=== PATIENT | female | born 1995 | race Caucasian/White ===

== ENCOUNTER → 2017-10-26 | Outpatient (CLI) | payer BC | LOC: COL.RAD 10:11 | DX: R10.32 Left lower quadrant pain (principal) ==

== ENCOUNTER 2019-09-25 16:05 | Emergency (ER) | payer MEDICAID ==
[~2019-09-25] VITALS: Ht 167.6 cm; Wt 61.4 kg
[2019-09-25 16:17] VITALS: TEMP 98.7
[2019-09-25 17:30] LABS: COLLECTION METHOD CLEAN CATCH
[2019-09-25] MEDS ORDERED: VENLAFAXINE225 MG PO (17:31)
[2019-09-25 17:36] LABS: MUCOUS Present /lpf; PH 6 (5-8); SQUAMOUS EPITHELIAL 0-2 /hpf; URINE APPEARANCE Clear; URINE BACTERIA Rare /hpf; URINE BILIRUBIN Negative (NEGATIVE); URINE BLOOD Negative (NEGATIVE); URINE COLOR Straw; URINE GLUCOSE Negative (NEGATIVE); URINE KETONE Negative (NEGATIVE); URINE LEUKOCYTE ESTERASE Negative (NEGATIVE); URINE NITRATE Negative (NEGATIVE); URINE PROTEIN(semi-quant) Negative (NEGATIVE); URINE RBC 0-2 /hpf; URINE UROBILINOGEN Negative (NEGATIVE)
[2019-09-25 18:13] LABS: BASO # 0.1 (0.0-0.2); BASO % 0.6 % (0.0-2.0); EOS # 0.2 (0.0-0.7); EOS % 1.8 % (0-4.0); GRAN # 7.1 (1.4-6.5); GRAN % 66.8 % (42.2-75.2); HEMOGLOBIN 12.7 g/dl (12.5-16.0); LYMPH # 2.4 (1.2-3.4); LYMPH % 22.1 % (20.0-51.0); MEAN CELL VOLUME 91 fl (80.0-100.0); MEAN CORPUSCULAR HEMOGLOBIN 31 pg (27.0-31.0); MEAN CORPUSCULAR HGB CONC 35 g/dl (33.0-37.0); MONO # 0.9 (0.1-0.6); MONO % 8.4 % (1.7-9.3); PLATELET COUNT 319 K/mm3 (130-400); RED BLOOD COUNT 4.04 M/mm3 (4.10-5.30); REDCELL DISTRIBUTION WIDTH-CV 10.9 % (11.5-14.5)
[2019-09-25 18:21] LABS: HEMATOCRIT 36.8 % (37.0-47.0)
[2019-09-25 21:05] VITALS: BP 126/71; PULSE 77
== END 2019-09-25 21:05 | disposition home or self-care (01) ==
LOC: COL.ER 16:05
PROVIDERS: Emergency Medicine
DX: O20.0 Threatened abortion (principal); Z3A.01 Less than 8 weeks gestation of pregnancy
CPT/HCPCS: J2791

== ENCOUNTER 2019-12-05 19:05 | Emergency (ER) | payer MEDICAID ==
[~2019-12-05] VITALS: Ht 167.6 cm; Wt 66.8 kg
[2019-12-05 19:11] VITALS: TEMP 98.1
[2019-12-05 19:37] LABS: COLLECTION METHOD CLEAN CATCH
[2019-12-05 19:41] LABS: BASO # 0.1 (0.0-0.2); BASO % 0.5 % (0.0-2.0); EOS # 0.2 (0.0-0.7); EOS % 2.1 % (0-4.0); GRAN # 6.8 (1.4-6.5); GRAN % 64.5 % (42.2-75.2); HEMOGLOBIN 10.3 g/dl (12.5-16.0); LYMPH # 2.7 (1.2-3.4); LYMPH % 25.6 % (20.0-51.0); MEAN CELL VOLUME 88 fl (80.0-100.0); MEAN CORPUSCULAR HEMOGLOBIN 31 pg (27.0-31.0); MEAN CORPUSCULAR HGB CONC 35 g/dl (33.0-37.0); MEAN PLATELET VOLUME 10.1 fl (7.4-10.4); MONO # 0.7 (0.1-0.6); MONO % 6.9 % (1.7-9.3); PLATELET COUNT 259 K/mm3 (130-400); RED BLOOD COUNT 3.31 M/mm3 (4.10-5.30); REDCELL DISTRIBUTION WIDTH-CV 11.6 % (11.5-14.5)
[2019-12-05 19:43] LABS: HEMATOCRIT 29.1 % (37.0-47.0)
[2019-12-05 19:44] LABS: MUCOUS Present /lpf; PH 7 (5-8); URINE APPEARANCE Clear; URINE BACTERIA Rare /hpf; URINE BILIRUBIN Negative (NEGATIVE); URINE BLOOD Negative (NEGATIVE); URINE COLOR Straw; URINE GLUCOSE Negative (NEGATIVE); URINE KETONE Negative (NEGATIVE); URINE LEUKOCYTE ESTERASE Negative (NEGATIVE); URINE NITRATE Negative (NEGATIVE); URINE PROTEIN(semi-quant) Negative (NEGATIVE); URINE RBC None Seen /hpf; URINE UROBILINOGEN Negative (NEGATIVE)
[2019-12-05 20:10] LABS: ALBUMIN 3.6 gm/dL (3.5-5.0); BILIRUBIN,TOTAL 0.1 mg/dL (0.0-1.0); CALCIUM 8.8 mg/dL (8.4-10.2); CREATININE, serum 0.37 (0.52-1.25); POTASSIUM 3.6 mmol/L (3.4-5.0); TOTAL PROTEIN 6.6 gm/dL (6.4-8.2)
[2019-12-05 20:45] VITALS: BP 120/78; PULSE 77
== END 2019-12-05 20:45 | disposition home or self-care (01) ==
LOC: COL.ER 19:05
PROVIDERS: Physician Assistant
DX: O26.892 Other specified pregnancy related conditions, second trimester (principal); R10.9 Unspecified abdominal pain; Z87.59 Personal history of other complications of pregnancy, childbirth and the puerperium; Z3A.16 16 weeks gestation of pregnancy

== ENCOUNTER → 2019-12-05 | Outpatient (CLI) | payer MEDICAID ==
[~2019-12-05] MED LIST: VENLAFAXINE225 MG PO
[2019-12-05 18:45] VITALS: BP 114/66; PULSE 84; TEMP 98.3
--- NOTE | 2019-12-05 19:09 | NUR ---
1830 HERE FOR LOWER ABD PAIN. PT WAS SENT HERE FROM ER FOR EVAL - IS 16.3WKS WITH LOWER ABD PAIN. COVID SCREEN DONE. FHR EVAL AND VS. REPORT TO DR SANCHES. 1899 SULY=W TO RETURN TO ER FOR FURTHER EVAL OF ABD PAIN.
== END ==
LOC: LDRO 18:40
DX: Z11.59 Encounter for screening for other viral diseases (principal); O26.892 Other specified pregnancy related conditions, second trimester; R10.30 Lower abdominal pain, unspecified; Z3A.16 16 weeks gestation of pregnancy

== ENCOUNTER 2020-03-25 15:28 | Outpatient (CLI) | payer MEDICAID ==
[~2020-03-25] VITALS: Ht 170.2 cm; Wt 77.7 kg
--- NOTE | 2020-03-25 15:30 | NUR ---
Pt arrives on unit ambulatory. Referred from office for non-reactive NST. EFM and toco applied. VSS. Denies vaginal bleeding, LOF, regular ctx and reports GFM. Admisison assessment completed. Updated on POC. No questions or concerns. Call light within reach.
[2020-03-25] MEDS ORDERED: MELATONIN5 M1 SL (15:41)
[2020-03-25] MEDS ORDERED: PRENATAL TABLET PO (15:42)
[2020-03-25] MEDS ORDERED: NATURAL IRON65 MG (15:42)
[2020-03-25] MEDS ORDERED: OSCAL 500 TAB500 MG PO (15:42)
[2020-03-25 16:20] VITALS: BP 118/64; PULSE 83; TEMP 98.3
== END 2020-03-25 16:20 | disposition home or self-care (01) ==
LOC: LDRO 15:28
DX: O34.30 Maternal care for cervical incompetence, unspecified trimester (principal); Z3A.00 Weeks of gestation of pregnancy not specified

== ENCOUNTER 2020-03-27 10:50 | Outpatient (CLI) | payer MEDICAID ==
[~2020-03-27] VITALS: Ht 170.2 cm; Wt 77.3 kg
--- NOTE | 2020-03-27 10:35 | NUR ---
1035- Pt presents to unit via wheelchair, bent over in pain. G2L0, 32+3. Complains of constant severe, 10/10 pain in right lower quadrant. Denies cramping or contractions. +FM. 1036- Pt assisted into gown and into bed, EFM and TOCO on anj tracing intermittently. VSS. O2 sat monitor on and tracing.
[~2020-03-27 10:50] MED LIST changes: +MELATONIN5 M1 SL; +NATURAL IRON65 MG; +OSCAL 500 TAB500 MG PO; +PRENATAL TABLET PO
[2020-03-27 10:58] VITALS: BP 112/66; PULSE 75; TEMP 98.5
--- NOTE | 2020-03-27 11:15 | NUR ---
1115- Pt updated on MD orders, Pt denies needed to void requests water to drink. Pt states pain is much better, 10/22. Water given.
[2020-03-27 11:30] VITALS: PULSE 83
[2020-03-27 11:40] LABS: MEAN CELL VOLUME 90 fl (80.0-100.0); MEAN CORPUSCULAR HEMOGLOBIN 32 pg (27.0-31.0); MEAN CORPUSCULAR HGB CONC 35 g/dl (33.0-37.0); MEAN PLATELET VOLUME 10.4 fl (7.4-10.4); PLATELET COUNT 207 K/mm3 (130-400); RED BLOOD COUNT 3.46 M/mm3 (4.10-5.30); REDCELL DISTRIBUTION WIDTH-CV 11.8 % (11.5-14.5)
[2020-03-27 11:47] LABS: ALBUMIN 3.3 gm/dL (3.5-5.0); BILIRUBIN,TOTAL 0.4 mg/dL (0.0-1.0); CALCIUM 8.6 mg/dL (8.4-10.2); CREATININE, serum 0.38 (0.52-1.25); HEMATOCRIT 31.1 % (37.0-47.0); POTASSIUM 3.8 mmol/L (3.4-5.0); TOTAL PROTEIN 6.3 gm/dL (6.4-8.2)
[2020-03-27 12:00] VITALS: BP 102/58; PULSE 73
[2020-03-27 12:02] LABS: COLLECTION METHOD CLEAN CATCH
[2020-03-27 12:04] LABS: BAND 15 % (0-10); EOSINOPHIL 1 % (0-4); LYMPHOCYTE 27 % (20.0-51.0); METAMYELOCYTE 2 % (0-0); NEUTROPHILS 53 % (42.0-75.2); PLATELET ESTIMATE NORMAL (NORMAL)
[2020-03-27 12:19] LABS: MUCOUS Present /lpf; PH 7 (5-8); SQUAMOUS EPITHELIAL 0-2 /hpf; URINE APPEARANCE Cloudy; URINE BACTERIA None Seen /hpf; URINE BILIRUBIN Negative (NEGATIVE); URINE BLOOD Negative (NEGATIVE); URINE COLOR Yellow; URINE GLUCOSE Negative (NEGATIVE); URINE KETONE Negative (NEGATIVE); URINE LEUKOCYTE ESTERASE Negative (NEGATIVE); URINE NITRATE Negative (NEGATIVE); URINE PROTEIN(semi-quant) Negative (NEGATIVE); URINE RBC 0-2 /hpf; URINE UROBILINOGEN Negative (NEGATIVE)
[2020-03-27 12:41] VITALS: BP 96/55; PULSE 81
--- NOTE | 2020-03-27 12:41 | NUR ---
1241- EFM and TOCO off. Discharge plan explained, questions answered. Pt up to change into street clothes. 1255- Discharge paperwork given and explained. Pt denies questions. Pt ambulates off unit with spouse in stable condition.
== END 2020-03-27 12:55 | disposition home or self-care (01) ==
LOC: LDRO 10:50
PROVIDERS: Obstetrics & Gynecology
DX: O26.899 Other specified pregnancy related conditions, unspecified trimester (principal); Z3A.00 Weeks of gestation of pregnancy not specified

== ENCOUNTER 2020-05-17 20:57 | Outpatient (CLI) | payer MEDICAID ==
[~2020-05-17] VITALS: Ht 167.6 cm; Wt 85.0 kg
[2020-05-17 21:18] VITALS: BP 119/74; PULSE 88; TEMP 98.4
[2020-05-17 21:20] VITALS: BP 119/74; PULSE 88; TEMP 98.4
--- NOTE | 2020-05-17 21:20 | NUR ---
2119 G2L0 39.5 WEEK GEST TO LR6 WITH C/O CONTRACTIONS MOST OF THE DAY, BECOMING REGULAR AND MORE PAINFUL AT AROUND 1600. STATES HAS NOT BEEN LEAKING ANY FLUID. HAD MEMBRANES STRIPPED BY DR WYNN IN THE OFFICE A COUPLE OF DAYS AGO. EFM ON. SVE /-2. BABY VERY ACTIVE, CONSTANTLY MOVING WITH ACCELS TO THE 160-170 NOTED. ADM ASSESSMENT DONE.
--- NOTE | 2020-05-17 21:40 | NUR ---
2140 PT STATES SHE IS BLEEDING. FELT SOMETHING COMING OUT AND FELT DOWN THERE AND HAD BLOOD ON HER HAND. SVE WITH NO CERVICAL CHANGE AND NO FLUID NOTED BUT 4 CM SPOT OF LIGHT BLOOD ON PAD AND 0.5 CM CLOT. SVE WITH NO FLUID NOTED.
[2020-05-17 22:15] VITALS: BP 129/82; PULSE 78
--- NOTE | 2020-05-17 22:15 | NUR ---
2215 SVE WITH NO CERVICAL CHANGE. SM AMT OF OLD, BROWNISH BLOOD NOTED ON GLOVE WITH EXAM. NO FLUID NOTED. BABY IS CONSTATNLY MOVING. DR. GARDNER NOTIFIED. WILL BE IN TO VISIT AND REVIEW STRIP.
--- NOTE | 2020-05-17 23:20 | NUR ---
2320 BABY HAS NOT BEEN SO ACTIVE SINCE 2299. FHT BASE 130'S. SHIRLENE EVERY 6-7 MINUTES WITH BACK PAIN BUT FEELS LIKE SHE COULD GO HOME FOR AWHILE. SVE WITH NO CHANGE. BROWNISH MUCOUS ON GLOVE AFTER SVE. DR GARDNER HERE AND REPORT GIVEN AND STRIP REVIEWED. ORDER TO DISMISS TO HOME 2339 DISMISSED TO HOME WITH INSTRUCTIONS.
== END 2020-05-17 23:40 | disposition home or self-care (01) ==
LOC: LDRO 20:57 → LDR 21:08 → LDRO 23:40
DX: O62.9 Abnormality of forces of labor, unspecified (principal); Z3A.39 39 weeks gestation of pregnancy
CPT/HCPCS: OP

== ENCOUNTER 2020-05-18 05:15 | Inpatient (IN) | payer MEDICAID ==
[2020-05-18] VITALS (49 sets, daily range): BP systolic 101–148; BP diastolic 57–961; PULSE 71–134; TEMP 97.8–99
[~2020-05-18] VITALS: Ht 167.6 cm; Wt 85.0 kg
--- NOTE | 2020-05-18 05:15 | NUR ---
0515 G2L0 39.6 WEEK GEST TO LR5 IN ACTIVE [facility] 0530 EFM ON. SVE /-2. BOW INTACT. OLD BLOODY SHOW NOTED ON EXAM. ADM ASSESSMENT COMPLETED.
--- NOTE | 2020-05-18 05:50 | NUR ---
0550 DR GARDNER NOTIFIED AND ADM ORDER RECEIVED. 0600 IV FLUIDS STARTED AND CASE LINER NOTIFIED FOR EPIDURAL PLACEMENT. 0630 SITTING ON SIDE OF BED FOR EPIDURAL. SEE ANESTHSIA RECORD FOR MORE INFO
--- NOTE | 2020-05-18 06:45 | NUR ---
0645 SITTING UP FOR EPID. UNABLE TO RESEARCH AND DEVELOPMENT TECHNICIAN FHT'S WHILE SITTING UP.
[2020-05-18 07:07] LABS: BASO % 0.2 % (0.0-2.0); EOS # 0.1 (0.0-0.7); EOS % 0.7 % (0-4.0); GRAN # 12.9 (1.4-6.5); HEMOGLOBIN 11.9 g/dl (12.5-16.0); LYMPH # 2.3 (1.2-3.4); LYMPH % 13.6 % (20.0-51.0); MEAN CELL VOLUME 91 fl (80.0-100.0); MEAN CORPUSCULAR HEMOGLOBIN 32 pg (27.0-31.0); MEAN CORPUSCULAR HGB CONC 35 g/dl (33.0-37.0); MONO # 1.3 (0.1-0.6); MONO % 7.8 % (1.7-9.3); PLATELET COUNT 218 K/mm3 (130-400); REDCELL DISTRIBUTION WIDTH-CV 11.7 % (11.5-14.5)
[2020-05-18 07:08] LABS: HEMATOCRIT 33.7 % (37.0-47.0)
--- NOTE | 2020-05-18 08:00 | NUR ---
PT REPORTS SHE IS FEELING NAUSEATED ALL OF A SUDDEN. SVE 5-6/90/-2. BP WNL. WILL GIVE ZOFRAN. FHT'S WITH MODERATE VARIABILITY AND ACCELS.
--- NOTE | 2020-05-18 08:15 | NUR ---
0805-ZOFRAN 4MG GIVEN VIA IV 0807-BP DOWN TO 90/55 AND PT IS PALE AND NAUSEATED 0808-EPHEDRINE 10MG GIVEN ALONG WITH IV BOLUS OF LR 0815-BP UP TO 117/64 AND PT REPORTS FEELING MUCH BETTER.
--- NOTE | 2020-05-18 08:30 | NUR ---
DR ROLES IN AT 0826. AROM WITH CLEAR FLUID AT 0828. SVE 5-6/90/-2
--- NOTE | 2020-05-18 09:15 | NUR ---
CONTRACTIONS VERY DIFFICULT TO MONITOR. REPOSITIONED TOCO
--- NOTE | 2020-05-18 10:15 | NUR ---
SVE WITH MINIMAL CHANGE. CONTRACTIONS IRREGULAR. PITOCIN STARTED AT [address] MAS
--- NOTE | 2020-05-18 10:45 | NUR ---
FHT'S WITH ONE EARLY AND ONE VARIABLE DECEL AND MODERATE VARIABILITY
--- NOTE | 2020-05-18 11:30 | NUR ---
FHT'S WITH RECURRENT DEEP VARIABLE DECELS. REPOSTIONED TO WEDGE RIGHT AND THEN TO WEDGE LEFT WITH PEANUT BALL AND DECELS CONTINUE, BOLUS STARTED, REPOSITIONED RIGHT LATERAL. DR LANDRUM IN AT 1123. FSE APPLIED AT [address] LANDRUM. SVE -/-2. REPOSITIONED WRPB AND PITOCIN OFF AT 1125. O2 ON 10L PER NONREBREATHER MASK AT 1130. CONTRACTIONS DIFFICULT TO MONITOR WITH PATIENT LYING RIGHT LATERAL. TOCO REPOSITIONED.
--- NOTE | 2020-05-18 12:15 | NUR ---
PT HAVING A LOT OF BACK PAIN AGAIN, TROUBLE BREATHING THROUGH CONTRACTIONS AND HAS PUSHED EPIDURAL BREADMAN BUTTON WITHIN THE LAST 15 MINUTES. WILL CONTACT ASSISTANT DIRECTOR OF PLANT OPERATIONS.
--- NOTE | 2020-05-18 12:30 | NUR ---
1216-CALLED SVITLANA MARTINEZ DUE TO THE INCREASING BACK PAIN WITH CONTRACTIONS. ARRIVES AT 1220 AND DOSES EPIDURAL THROUGH PUMP. BY 1230 PT REPORTS FEELING MUCH BETTER. FHT'S CONTINUE WITH DEEP VARIABLE DECELS. DR LANDRUM REMAINS IN HOSPITAL AT NURSES STATION MONITORING HEART TONES.
--- NOTE | 2020-05-18 13:15 | NUR ---
PT FEELING A GREAT DEAL OF PAIN AND PRESSURE WITH CONTRACTIONS AGAIN. ENCOURAGED HER TO PUSH EPDIURAL CAMPAIGN ASSISTANT.
--- NOTE | 2020-05-18 13:30 | NUR ---
ROLES IN AT 1318. SVE 8-9/100/0 WITH VERY STRETCHY CERVIX. BABY IS IN OCCIPUT POSTERIOR POSITION. FHT'S REMAIN WITH DEEP RECURRENT VARIABLE DECELS. CALLED SVITLANA MARTINEZ, AT 1324 PT IS STRUGGLING TO BREATHE THROUGH CONTRACTIONS. CHON ARRIVES AT 1328 TO DOSE EPIDURAL.
--- NOTE | 2020-05-18 13:37 | NUR ---
PT CONSISTENTLY HAVING CONTRACTIONS EVERY 2-3 MINUTES THAT ARE NOT SHOWING ON THE MONITOR. APPEARS TO ALMOST BE TRACING THE CONTRACTIONS UPSIDE DOWN. REPOSITIONED TOCO MONITOR TO SEE IF CAN MONITOR CONTRACTIONS IN THE RIGHT MANNER.
--- NOTE | 2020-05-18 14:00 | NUR ---
MONITORING CONTRACTIONS BETTER. PT CONTINUING TO BREATHE THROUGH CONTRACTIONS, ENCOURAGED SLOW,DEEP BREATHS. FHT'S WITH MUCH LESS VARIABLE DECELS AND NOT DEEP OF DECELS.
--- NOTE | 2020-05-18 14:30 | NUR ---
DR ROLES IN AT 1428. PT WITH ANTERIOR LIP OF CERVIX. O2 ON AT 1419 FOR DEEP VARIABLE DECEL TO THE 40'S AND BOLUS STARTED. 02 OFF AT 1430. PITOCIN 2MU ON AT [address] LANDRUM. FHT'S WITH MODERATE VARIABILITY AND VARIABLE DECELS.
--- NOTE | 2020-05-18 14:45 | NUR ---
COMPLETE CERVICAL DILATION. ROLES IN AT 1437 WHEN PT STARTS PUSHING. Lucrecia HERNANDEZ CRNA, IN AT 1437 ALSO TO DOSE EPIDURAL PT IS HYPERVENTILATING AND CANNOT BREATHE THROUGH CONTRACTIONS. FHT'S REMAIN WITH MODERATE VARIABILITY AND RECURRENT DEEP VARIABLE DECELS.
--- NOTE | 2020-05-18 15:45 | NUR ---
PT CONTINUES TO PUSH AND IS MAKING GOOD PROGRESS. DR ROLES IN AT 1540 TO EVALUATE PUSHING.
--- NOTE | 2020-05-18 16:16 | NUR ---
DR LANDRUM AT BEDSIDE FOR DELIVERY. OF MALE AT [address] LANDRUM CUTS MLE. PITOCIN OFF AFTER DELIVERY OF BABY.
--- NOTE | 2020-05-18 16:25 | NUR ---
DR LANDRUM AT BEDSIDE REPAIRING MLE. DELIVERY OF PLACENTA SPONTANEOUSLY AT 1624. PITOCIN STARTED AT 333ML/HR AFTER DELIVERY OF PLACENTA. FUNDUS FIRM WITH SMALL TO MODERATE FREE FLOW. DR LUCITA RESENDIZ CATHETERIZED PT AFTER DELIVERY WITH 50CC URINE RETURNED.
--- NOTE | 2020-05-18 17:55 | NUR ---
IV TO INT AT THIS TIME. PT RESTING IN BED HOLDING BABY.
--- NOTE | 2020-05-18 19:05 | NUR ---
1904 EPID DCD. RIGHT LEG STILL NUMB. URGE TO VOID. UP TO BR PER W/C AND ASSIST X2. VOIDED 200CC AND PERICARE DONE. TO 207 PER W/C. GABRIELE WELL. 1929 MOTRIN 600MG AND PERCOCET X2 PO GIVEN FOR PERINEAL PAIN.
[2020-05-19 03:10] VITALS: BP 122/55; PULSE 104; TEMP 97.9
[2020-05-19 08:45] VITALS: BP 116/72; PULSE 98; TEMP 97.8
--- NOTE | 2020-05-19 10:20 | NUR ---
Initial visit; Parents thanked for offering congratulations for the of their son. Harness Puller thanked family for choosing [facility].
[2020-05-19 12:30] VITALS: BP 113/64; PULSE 88; TEMP 98.4
[2020-05-19] MEDS ORDERED: MOTRIN 800800 MG/TAB PO (14:18)
[2020-05-19] MEDS ORDERED: PERCOCET 325 MG1 TA2 PO (14:18)
[2020-05-19 16:45] VITALS: BP 105/59; PULSE 84
[2020-05-19 22:00] VITALS: BP 105/62; PULSE 77; TEMP 98.3
[2020-05-20 04:00] VITALS: BP 110/60; PULSE 79; TEMP 98.6
[2020-05-20 06:30] VITALS: BP 125/76; PULSE 79; TEMP 98.2
== END 2020-05-20 13:45 | disposition home or self-care (01) | DRG 807 ==
LOC: LDRO 05:15 → LDR 05:16 → LDRO 05:49 → LDR 05:50 → OB 05:50
PROVIDERS: Obstetrics & Gynecology; ADMIT Obstetrics & Gynecology
PROC: 10E0XZZ Delivery of Products of Conception, External Approach (ICD-10-PCS; principal; 2020-05-18)
PROC: 10907ZC Drainage of Amniotic Fluid, Therapeutic from Products of Conception, Via Natural or Artificial Opening (ICD-10-PCS; 2020-05-18)
PROC: 0W8NXZZ Division of Female Perineum, External Approach (ICD-10-PCS; 2020-05-18)
DX: O70.1 Second degree perineal laceration during delivery (principal); Z37.0 Single live birth; Z3A.38 38 weeks gestation of pregnancy; K59.00 Constipation, unspecified; O99.62 Diseases of the digestive system complicating childbirth
CPT/HCPCS: J2405; J2590; J7120

== ENCOUNTER → 2024-05-02 | Outpatient (CLI) | payer MEDICAID ==
[~2024-05-02] MED LIST changes: +MOTRIN 800800 MG/TAB PO; +PERCOCET 325 MG1 TA2 PO
[2024-05-02 17:21] LABS: BASO # 0.1 K/mm3 (0.0-0.2); BASO % 0.8 % (0.0-2.0); EOS # 0.2 K/mm3 (0.0-0.7); EOS % 2.9 % (0.0-4.0); GRAN # 2.6 K/mm3 (1.4-6.5); GRAN % 34.9 % (42.2-75.2); LYMPH # 3.7 K/mm3 (1.2-3.4); MEAN CELL VOLUME 86 fl (80.0-100.0); MEAN CORPUSCULAR HEMOGLOBIN 30 pg (27-31); MEAN CORPUSCULAR HGB CONC 35 g/dl (33.0-37.0); MEAN PLATELET VOLUME 10.3 fl (7.4-10.4); MONO # 0.8 K/mm3 (0.1-0.6); MONO % 10.3 % (1.7-9.3); PLATELET COUNT 326 K/mm3 (130-400); RED BLOOD COUNT 3.99 M/mm3 (4.10-5.30); REDCELL DISTRIBUTION WIDTH-CV 11.9 % (11.5-14.5)
[2024-05-02 17:27] LABS: HEMATOCRIT 34.3 % (37.0-47.0)
[2024-05-02 17:40] LABS: BILIRUBIN,TOTAL 0.6 mg/dL (0.2-1.2); CREATININE, serum 0.73 mg/dL (0.57-1.11); POTASSIUM 4.2 mEq/L (3.5-4.5); TOTAL PROTEIN 7.1 g/dl (6.2-8.1)
[2024-05-02 18:00] LABS: CHOLESTEROL RISK RATIO 4.4; TSH w REFLEX 1.107 uIU/mL (0.350-4.940)
== END ==
LOC: COL.LAB 16:04
PROVIDERS: Physician Assistant Medical
DX: Z13.0 Encounter for screening for diseases of the blood and blood-forming organs and certain disorders involving the immune mechanism (principal); Z13.228 Encounter for screening for other metabolic disorders; Z13.1 Encounter for screening for diabetes mellitus; Z13.220 Encounter for screening for lipoid disorders; Z13.29 Encounter for screening for other suspected endocrine disorder; Z80.3 Family history of malignant neoplasm of breast